=== PATIENT | female | born 1940 | race Caucasian/White ===

== ENCOUNTER 2018-07-25 00:22 | Emergency (ER) | payer MEDICARE, OTHER ==
--- NOTE | 2018-07-25 00:35 | ERPHSYRPT ---
- History of Present Illness Time Seen by Provider: 07/25/18 00:34 Source: patient, family Exam Limitations: no limitations Physician History: 77 y/o white female slipped in shower, fell backwards and hit back of head [employer] force [employer]. no loc, no blood thinning medications. Occurred: just prior to arrival Reason for Fall: slipped Injuries/Pain Location: head Loss of Consciousness: no loss of consciousness Quality: aching Severity of Pain-Max: mild Severity of Pain-Current: mild Modifying Factors: Improves With: nothing Associated Symptoms (Fall): headache, No nausea, No neck pain, No vomiting Allergies/Adverse Reactions: No Known Drug Allergies Allergy (Verified 07/25/18 00:42) Home Medications: Atorvastatin Calcium [Lipitor] 20 mg PO DAILY 07/25/18 [History] Donepezil HCl [Aricept] 5 mg PO DAILY 07/25/18 [History] Fluticasone/Vilanterol [Breo Ellipta 200-25 Mcg INH] 1 each IH DAILY 07/25/18 [ History] Loratadine 10 mg [Claritin 10 mg] 10 mg PO DAILY 07/25/18 [History] Meloxicam 7.5 mg [Mobic 7.5 MG] 7.5 mg PO DAILY 07/25/18 [History] Memantine HCl [Namenda Xr] 28 mg PO DAILY 07/25/18 [History] Omeprazole 20 mg PO DAILY 07/25/18 [History] PARoxetine HCl [Paroxetine HCl] 10 mg PO DAILY 07/25/18 [History] - Review of Systems Constitutional: No Symptoms Eyes: No Symptoms Ears, Nose, & Throat: No Symptoms Respiratory: No Symptoms Cardiac: No Symptoms Abdominal/Gastrointestinal: No Symptoms Genitourinary Symptoms: No Symptoms Musculoskeletal: No Symptoms Skin: No Symptoms Neurological: Headache Psychological: No Symptoms Endocrine: No Symptoms Hematologic/Lymphatic: No Symptoms Immunological/Allergic: No Symptoms All Other Systems: Reviewed and Negative - Past Medical History Neurological History: No Pertinent History ENT History: No Pertinent History Cardiac History: No Pertinent History Respiratory History: No Pertinent History Endocrine Medical History: No Pertinent History Musculoskeletal History: No Pertinent History GI Medical History: No Pertinent History History: No Pertinent History Psycho-Social History: No Pertinent History Female Reproductive Disorders: No Pertinent History - Past Surgical History Neuro Surgical History: No Pertinent History Cardiac: No Pertinent History Respiratory: No Pertinent History Gastrointestinal: No Pertinent History Genitourinary: No Pertinent History Female Surgical History: No Pertinent History - Nursing Vital Signs Nursing Vital Signs: Initial Vital Signs Temperature 97.8 F 07/25/18 00:31 Pulse Rate 73 07/25/18 00:31 Respiratory Rate 18 07/25/18 00:31 Blood Pressure 137/78 07/25/18 00:31 O2 Sat by Pulse Oximetry 94 L 07/25/18 00:31 Pain Scale Pain Intensity 8 - Christel Coma Score Best Eye Response ([place]): (4) open spontaneously Best Verbal Response ([place]): (5) oriented Best Motor Response ([place]): (6) obeys commands [place] Total: 15 - Physical Exam General Appearance: no apparent distress, alert, anxiety Head Injury: swelling, tenderness (posteriorly), No Chau's Sign, No ecchymosis , No lacerations Eye Exam: PERRL/EOMI ENT Exam: airway nml, nml ext.inspection Neck Exam: supple, trachea midline, full range of motion, normal alignment, normal inspection Respiratory/Chest Exam: normal breath sounds, No chest tenderness, No respiratory distress Cardiovascular Exam: normal heart sounds Gastrointestinal Exam: soft, normal bowel sounds, No tenderness Rectal Exam: not done Back Exam: normal inspection, normal range of motion, No CVA tenderness, No vertebral tenderness Extremity Exam: normal inspection, normal range of motion Neurologic Exam: alert, oriented x 3, cooperative, mud analysis operator II-XII nml as tested, normal mood/affect, nml cerebellar function, nml station & gait Skin Exam: normal color, warm, dry SpO2 Interpretation: normal O2 Delivery: Room Air Ordered Tests: Active Orders 24 hr Category Date Time Status HEAD WITHOUT CONTRAST [CT] Stat Exams 07/25/18 00:35 Taken - Progress Progress: unchanged Progress Note: 07/25/18 01:32 ct head negative Counseled pt/family regarding: diagnosis, need for follow-up, rad results - Departure Departure Disposition: Home Clinical Impression: Fall, Head injury Condition: Stable Critical Care Time: No Referrals: JENN ROBINS MD [Family Provider] - Additional Instructions: ice pack to head 3 times daily for 2 days. tylenol and ibuprofen for pain
[2018-07-25 01:34] VITALS: BP 128/73; PULSE 70; O2SAT 97
--- NOTE | 2018-07-25 09:04 | XRAY ---
Indication: Posterior head injury/hematoma following fall in shower. Multiple contiguous axial images obtained through the head without contrast. Comparison: None. Large right posterior vertex scalp hematoma. Age-appropriate global atrophy. No acute intracranial hemorrhage, abnormal extra-axial fluid collection, or mass effect. Fourth ventricle is midline without hydrocephalus. Vaughn-white matter differentiation preserved. Bony calvarium intact. Visualized paranasal sinuses and mastoid air cells are clear. Impression: Large right posterior scalp hematoma. No acute fracture or acute intracranial abnormalities. Comment: Preliminary interpretation was made by [facility]. No discrepancy. CT DI 52.26
== END 2018-07-25 01:40 | disposition home or self-care (01) ==
LOC: ED 00:22
DX: S00.93XA Contusion of unspecified part of head, initial encounter (principal); W18.2XXA Fall in (into) shower or empty bathtub, initial encounter; R51 Headache
CPT/HCPCS: 70450; 99283